=== PATIENT | male | born 1955 | race Caucasian/White ===

== ENCOUNTER → 2021-03-09 01:56 | Outpatient (CLI) | payer BC, OTHER, SELFPAY ==
[2021-03-09 19:16] LABS: SARS-CoV-2 RNA PCR Negative
== END ==
PROVIDERS: PCP Family Medicine; Visit Provider Internal Medicine Gastroenterology
DX: Z01.812 Encounter for preprocedural laboratory examination (principal); Z20.822 Contact with and (suspected) exposure to COVID-19
CPT/HCPCS: C9803; U0003; U0005

== ENCOUNTER 2021-03-12 00:42 | Day surgery (SDC) | payer BC, OTHER, SELFPAY ==
[2021-03-01 09:10] VITALS: BMI 25.5
[2021-03-12 08:40] VITALS: BP 175/75; PULSE 49; RESP 20; TEMP 36.1; O2SAT 100; BMI 25.9
--- NOTE | 2021-03-12 08:56 | WPDANESEPPF ---
Anes - Initial Pre Proc Eval Procedure: Operation Date: 03/12/21 10:00 Proposed Procedures p Screening Colonoscopy - Keyon Loja MD Date/Time: 03/12/21 08:56 Surgeon: Keyon Loja MD Pre Op Diagnosis: neoplasm screening Patient Data Age: 65 Gender: M Height: 1.83 m Weight: 86.8 kg Last Vital Signs Temp 36.1 C L 03/12/21 08:40 Pulse 49 L 03/12/21 08:40 Resp 20 03/12/21 08:40 BP 175/75 H 03/12/21 08:40 Pulse Ox 100 03/12/21 08:40 Allergies Allergy/AdvReac Type Severity Reaction Status Date / Time Sulfa (Sulfonamide Allergy Unknown rash sg Verified 02/11/21 09:07 Antibiotics) Home Medications Medication Instructions Recorded Confirmed Type lisinopril 10 mg tablet 10 mg PO DAILY #90 tablet 12/12/20 03/12/21 Rx Patient hx anesthesia problems: none Family hx anesthesia problems: none [facility] Past Medical History Medical History (Updated 03/12/21 @ 08:56 by Dom Carlos DO) Anemia Hypertension CARTER (obstructive sleep apnea) Surgical History Surgical History (Reviewed 01/16/20 @ 09:43 by Phoebe Gonzalez [facility]) History of colonoscopy (~05/25/09) History of removal of retained hardware (~1997) Status post ORIF of fracture of ankle (~1972) Status post ORIF of fracture of ankle (~1960) Family History Family History (Reviewed 01/16/20 @ 09:43 by Phoebe Gonzalez [facility]) Grandparent Family history of premature coronary heart disease Hypertension Family history of coronary artery disease Social History Social History (Reviewed 01/16/20 @ 09:43 by Phoebe Gonzalez [facility]) Years smoked: 10 Smoking status: Former smoker Tobacco type: cigarettes Alcohol intake: current Drinks per week: 14 Substance use type: does not use Living arrangements: with family Gender identity (if verbalized by the patient): Male Anes - Eval Final PreProcedure Day of Procedure 03/12/21 08:56 Patient weight: overweight Heart: regular rate and rhythm Lungs: clear to auscultation and normal air movement Airway: Mallampati scale class II Neurological: alert and oriented Last oral intake: >/= 8 hours ASA classification: III Emergent: no Anesthetic plan: proceed Anesthesia type and monitoring: general GIVS and standard monitoring Informed Consent: The patient's anesthetic plan and its attendant risks and benefits were discussed with the patient/family/POA. Questions were solicited and answers provided to the satisfaction of the patient/family/POA.
[2021-03-12] MEDS: LACTATED RINGERS 1,000 ML 150 ML IV CONT (08:59)
[2021-03-12 09:37] VITALS: BP 111/67; PULSE 56; RESP 22; O2SAT 100
[2021-03-12 09:47] VITALS: BP 120/72; PULSE 48; RESP 22; O2SAT 100
[2021-03-12 09:57] VITALS: BP 140/76; PULSE 45; RESP 25; O2SAT 100
--- NOTE | 2021-03-14 13:27 | PM.HPGS ---
History of Present Illness History of Present Illness Consent: Risks, benefits, and alternatives have been discussed and questions answered. Patient agrees to proceed with procedure. Chief complaint: neoplasm screening Narrative: Gaston Valero is a 65 year old male referred for colon cancer screening Review of Systems Review of Systems: All systems reviewed & are unremarkable except as noted in HPI and below PMFSH Past Medical History Medical History Anemia Hypertension CARTER (obstructive sleep apnea) Surgical History Surgical History History of colonoscopy (~05/25/09) History of removal of retained hardware (~1997) Status post ORIF of fracture of ankle (~1972) Status post ORIF of fracture of ankle (~1960) Family History Family History Grandparent Family history of premature coronary heart disease Hypertension Family history of coronary artery disease Social History Social History Years smoked: 10 Smoking status: Former smoker Tobacco type: cigarettes Alcohol intake: current Drinks per week: 14 Substance use type: does not use Living arrangements: with family Gender identity (if verbalized by the patient): Male Meds Home Medications and Allergies Home Medications Medication Instructions Recorded Confirmed Type lisinopril 10 mg tablet 10 mg PO DAILY #90 tablet 12/12/20 03/12/21 Rx Allergies Allergy/AdvReac Type Severity Reaction Status Date / Time Sulfa (Sulfonamide Allergy Unknown rash sg Verified 02/11/21 09:07 Antibiotics) Exam Resp: Auscultation: clear to auscultation bilaterally Cardio: Rate: regular rate Rhythm: regular rhythm GI: GI Palp: Yes Soft to palpation and No Tenderness to palpation present (GI) Assessment and Plan Assessment and plan (1) Screening for colon cancer: Code(s): Z12.11 - Encounter for screening for malignant neoplasm of colon Status: Acute Assessment and Plan: Colonoscopy with possible biopsy or polypectomy or cautery or injection of substances.
== END 2021-03-12 10:00 | disposition home or self-care (01) ==
PROVIDERS: PCP Family Medicine; Visit Provider Internal Medicine Gastroenterology
PROC: 0DJD8ZZ Inspection of Lower Intestinal Tract, Via Natural or Artificial Opening Endoscopic (ICD-10-PCS; CPT 45378; principal; 2021-03-12 10:00)
DX: Z12.11 Encounter for screening for malignant neoplasm of colon (principal); D12.5 Benign neoplasm of sigmoid colon; K57.30 Diverticulosis of large intestine without perforation or abscess without bleeding; D64.9 Anemia, unspecified; I10 Essential (primary) hypertension; G47.33 Obstructive sleep apnea (adult) (pediatric); Z87.891 Personal history of nicotine dependence
CPT/HCPCS: 45385; 88305; J2704; J7120

== ENCOUNTER 2022-07-07 12:40 | Outpatient (CLI) | payer MEDICARE, BC, SELFPAY | END 2022-07-07 12:41 | disposition home or self-care (01) | LOC: ANHAUDASC 12:41 | PROVIDERS: PCP Family Medicine; Visit Provider Family Medicine | DX: H91.90 Unspecified hearing loss, unspecified ear (principal) | CPT/HCPCS: 92557; 92567 ==

== ENCOUNTER 2022-08-12 08:42 | Outpatient (CLI) | payer MEDICARE, BC, SELFPAY ==
[2022-08-12 18:52] LABS: Hematocrit 46.5 % (42.0-52.0); Hemoglobin 15.7 g/dL (14.0-18.0); Mean Corpuscular HGB Conc 33.8 g/dl (32-36); Mean Corpuscular Hemoglobin 34.1 pg (26-34); Mean Corpuscular Volume 101.1 fl (80-100); Mean Platelet Volume 9.9 fl (7.4-10.4); Platelet Count Result 281 k/mm3 (150-375); Red Cell Distribution Width 13.6 % (11.5-14.5); White Blood Count 5.4 K/mm3 (4.5-10.0)
[2022-08-12 19:49] LABS: Alanine Aminotransferase 28 U/L (6-50); Albumin Level 4.8 g/dL (3.5-5.1); Alkaline Phosphatase 49 U/L (38-126); Anion Gap 9 mmol/L (8-16); Aspartate Amino Transferase 38 U/L (17-59); Blood Urea Nitrogen 25 mg/dL (9-20); Calcium 9.7 mg/dL (8.4-10.2); Carbon Dioxide 25 mmol/L (22-30); Chloride 102 mmol/L (98-107); Cholesterol 195 mg/dL (0-200); Estimated Glomerular Filt Rate > 60; Glucose 87 mg/dL (65-110); HDL Direct 74 mg/dL; Potassium 4.5 mmol/L (3.4-5.0); Sodium 136 mmol/L (137-145); Triglycerides 56 mg/dL (<150)
[2022-08-12 20:00] LABS: LDL Cholesterol Direct 99 mg/dL
[2022-08-12 20:17] LABS: Prostate Specific Antigen 0.4 ng/mL (< OR = 4.0)
== END 2022-08-12 08:43 | disposition home or self-care (01) ==
LOC: ANHGOSHLAB 08:47
PROVIDERS: PCP Family Medicine; Visit Provider Family Medicine
DX: E66.3 Overweight (principal); E78.00 Pure hypercholesterolemia, unspecified; I10 Essential (primary) hypertension; Z12.5 Encounter for screening for malignant neoplasm of prostate; Z79.899 Other long term (current) drug therapy
CPT/HCPCS: 36415; 80053; 80061; 84153; 84443; 85027; G0103

== ENCOUNTER 2023-11-13 09:03 | Outpatient (CLI) | payer MEDICARE, BC, SELFPAY ==
[2023-11-13 19:33] LABS: Hematocrit 46.9 % (42.0-52.0); Hemoglobin 14.9 g/dL (14.0-18.0); Mean Corpuscular HGB Conc 31.8 g/dl (32-36); Mean Corpuscular Hemoglobin 31.4 pg (26-34); Mean Corpuscular Volume 98.7 fl (80-100); Platelet Count Result 204 k/mm3 (150-375); Red Blood Count 4.75 M/mm3 (4.6-6.20); Red Cell Distribution Width 12.6 % (11.5-14.5); White Blood Count 5.8 K/mm3 (4.5-10.0)
[2023-11-13 19:48] LABS: Alanine Aminotransferase 27 U/L (6-50); Albumin Level 4.2 g/dL (3.5-5.1); Alkaline Phosphatase 43 U/L (38-126); Anion Gap 7 mmol/L (8-16); Aspartate Amino Transferase 45 U/L (17-59); Bilirubin,Total 1.3 mg/dL (0.2-1.3); Blood Urea Nitrogen 18 mg/dL (9-20); Calcium 9.4 mg/dL (8.4-10.2); Carbon Dioxide 30 mmol/L (22-30); Chloride 102 mmol/L (98-107); Cholesterol 184 mg/dL (0-200); Estimated Glomerular Filt Rate > 60; Glucose 77 mg/dL (65-110); HDL Direct 75 mg/dL; Potassium 4.5 mmol/L (3.4-5.0); Sodium 139 mmol/L (137-145); Triglycerides 57 mg/dL (<150)
[2023-11-13 20:06] LABS: LDL Cholesterol Direct 88 mg/dL
[2023-11-13 20:24] LABS: Prostate Specific Antigen 0.3 ng/mL (< OR = 4.0)
== END 2023-11-13 09:04 | disposition home or self-care (01) ==
PROVIDERS: PCP Family Medicine; Visit Provider Family Medicine
DX: Z12.5 Encounter for screening for malignant neoplasm of prostate (principal); E78.00 Pure hypercholesterolemia, unspecified; I10 Essential (primary) hypertension; E66.3 Overweight; Z79.899 Other long term (current) drug therapy
CPT/HCPCS: 36415; 80053; 80061; 84153; 84443; 85027; G0103

== ENCOUNTER 2024-07-08 07:36 | Outpatient (CLI) | payer MEDICARE, BC, SELFPAY ==
[2024-07-08 08:15] LABS: Alanine Aminotransferase 25 U/L (6-50); Albumin Level 4.7 g/dL (3.5-5.1); Alkaline Phosphatase 39 U/L (38-126); Anion Gap 9 mmol/L (4-12); Aspartate Amino Transferase 31 U/L (17-59); Bilirubin,Total 1.4 mg/dL (0.2-1.3); Blood Urea Nitrogen 18 mg/dL (9-20); Calcium 9.5 mg/dL (8.4-10.2); Carbon Dioxide 28 mmol/L (22-30); Chloride 101 mmol/L (98-107); Cholesterol 169 mg/dL (0-200); Estimated Glomerular Filt Rate > 60; Glucose 90 mg/dL (65-110); HDL Direct 81 mg/dL; Sodium 138 mmol/L (137-145); Triglycerides 50 mg/dL (<150)
[2024-07-08 08:26] LABS: LDL Cholesterol Direct 69 mg/dL
== END 2024-07-08 07:37 | disposition home or self-care (01) ==
LOC: ANHLAB 07:39
PROVIDERS: PCP Family Medicine; Visit Provider Nurse Practitioner
DX: E78.00 Pure hypercholesterolemia, unspecified (principal)
CPT/HCPCS: 36415; 80053; 80061

== ENCOUNTER 2024-07-12 08:03 | Outpatient (CLI) | payer MEDICARE, BC, SELFPAY ==
--- NOTE | ~2024-07-12 | XR_ITS ---
Left Shoulder Technique: AP and scapular Y views were obtained. Clinical History: Pain Findings: No fracture or dislocation is seen. Osseous alignment is anatomic. The glenohumeral joint i s intact. There is mild AC joint degenerative change. Soft tissues are unremarkable. Impression: Mild AC joint degenerative change. Reviewed, dictated and finalized at location . Impression: Mild AC joint degenerative change.
== END 2024-07-12 08:04 | disposition home or self-care (01) ==
PROVIDERS: Visit Provider Nurse Practitioner
DX: M19.012 Primary osteoarthritis, left shoulder (principal)
CPT/HCPCS: 73030

== ENCOUNTER 2024-07-20 07:47 | Outpatient (CLI) | payer MEDICARE, BC, SELFPAY | END 2024-07-20 07:48 | disposition home or self-care (01) | PROVIDERS: Visit Provider Nurse Practitioner | DX: H90.3 Sensorineural hearing loss, bilateral (principal); H93.13 Tinnitus, bilateral; H61.21 Impacted cerumen, right ear; Z97.4 Presence of external hearing-aid | CPT/HCPCS: 92557; 92567 ==

== ENCOUNTER 2025-01-10 09:00 | Outpatient (CLI) | payer MEDICARE, BC, SELFPAY ==
[2025-01-10 13:27] LABS: Hematocrit 45.7 % (42.0-52.0); Hemoglobin 14.8 g/dL (14.0-18.0); Mean Corpuscular HGB Conc 32.4 g/dl (32-36); Mean Corpuscular Hemoglobin 31.6 pg (26-34); Mean Corpuscular Volume 97.6 fl (80-100); Mean Platelet Volume 9.7 fl (7.4-10.4); Platelet Count Result 219 k/mm3 (150-375); Red Blood Count 4.68 M/mm3 (4.6-6.20); Red Cell Distribution Width 12.5 % (11.5-14.5); White Blood Count 5.7 K/mm3 (4.5-10.0)
[2025-01-10 15:44] LABS: Alanine Aminotransferase 32 U/L (6-50); Albumin Level 4.4 g/dL (3.5-5.1); Alkaline Phosphatase 41 U/L (38-126); Anion Gap 8 mmol/L (4-12); Aspartate Amino Transferase 50 U/L (17-59); Bilirubin,Total 1.3 mg/dL (0.2-1.3); Blood Urea Nitrogen 15 mg/dL (9-20); Calcium 9.5 mg/dL (8.4-10.2); Carbon Dioxide 29 mmol/L (22-30); Chloride 101 mmol/L (98-107); Cholesterol 161 mg/dL (0-200); Estimated Glomerular Filt Rate > 60; Glucose 89 mg/dL (65-110); HDL Direct 79 mg/dL; Potassium 4.4 mmol/L (3.4-5.0); Sodium 138 mmol/L (137-145); Triglycerides 46 mg/dL (<150)
[2025-01-10 15:55] LABS: LDL Cholesterol Direct 61 mg/dL
[2025-01-10 22:01] LABS: Prostate Specific Antigen 0.2 ng/mL (< OR = 4.0)
== END 2025-01-10 09:01 | disposition home or self-care (01) ==
PROVIDERS: Visit Provider Nurse Practitioner
DX: E78.5 Hyperlipidemia, unspecified (principal); Z12.5 Encounter for screening for malignant neoplasm of prostate
CPT/HCPCS: 36415; 80053; 80061; 84153; 84443; 85027; G0103